=== PATIENT | female | born 1945 | race Caucasian/White ===

== ENCOUNTER 2024-06-29 11:45 | Emergency (ER) | payer MEDICARE, BC | END 2024-06-29 13:34 | disposition home or self-care (01) | LOC: VM.ED 11:45 | DX: J40 Bronchitis, not specified as acute or chronic (principal); E78.00 Pure hypercholesterolemia, unspecified; E03.9 Hypothyroidism, unspecified; Z79.82 Long term (current) use of aspirin; Z79.899 Other long term (current) drug therapy; Z88.8 Allergy status to other drugs, medicaments and biological substances | CPT/HCPCS: 99283 ==